=== PATIENT | male | born 1995 | race Caucasian/White ===

== ENCOUNTER 2023-01-26 11:23 | Emergency (ER) | payer OTHER ==
[2023-01-26 12:12] LABS: BILIRUBIN,URINE NEGATIVE (NEGATIVE); CLARITY,URINE CLEAR (CLEAR); GLUCOSE, URINE (UA) NEGATIVE (NEGATIVE); KETONES,URINE (UA) NEGATIVE (NEGATIVE); LEUKOCYTE ESTERASE, URINE NEGATIVE (NEGATIVE); NITRITE,URINE NEGATIVE (NEGATIVE); OCCULT BLOOD,URINE NEGATIVE (NEGATIVE); PROTEIN,URINE NEGATIVE (NEGATIVE); UROBILINOGEN,URINE 0.2 (NORMAL) E.U./dL (NORMAL)
[2023-01-26 12:15] LABS: BASOPHILS % (AUTO) 0.6 %; EOSINOPHILS # (AUTO) 0.2 10^3/uL (0.0-0.7); HCT - HEMATOCRIT 47.2 % (42.0-52.0); HGB - HEMOGLOBIN 16.3 g/dL (14.0-18.0); LYMPHOCYTES % (AUTO) 27.9 %; MEAN CORPUSCULAR HGB CONC 34.5 g/dL (32.0-36.0); MEAN CORPUSCULAR VOLUME 86.9 fL (80.0-94.0); MEAN PLATELET VOLUME 10.3 fL (7.4-11.4); MONOCYTES # (AUTO) 0.4 10^3/uL (0.0-1.0); MONOCYTES % (AUTO) 5.7 %; NEUTROPHILS # (AUTO) 4.4 10^3/uL (1.5-6.6); NEUTROPHILS % (AUTO) 62.2 %; PLT - PLATELET COUNT 271 10^3/uL (130-450); RED BLOOD COUNT 5.43 10^6/uL (4.70-6.10); RED CELL DISTRIBUTION WIDTH 12.5 % (12.0-15.0)
[2023-01-26 12:29] LABS: ALBUMIN 5.2 g/dL (3.2-5.5); ALBUMIN/GLOBULIN RATIO 2.1 (1.0-2.2); BILIRUBIN,TOTAL 0.6 mg/dL (0.2-1.0); CALCIUM 10.2 mg/dL (8.5-10.3); CREATININE 0.8 mg/dL (0.6-1.3); POTASSIUM 3.9 mmol/L (3.5-4.5); TOTAL PROTEIN 7.7 g/dL (6.4-8.9)
--- NOTE | 2023-01-26 13:50 | ED Physician Documentation ---
History of Present Illness - Stated complaint Stated Complaint: LOWER ABD PX - Chief complaint Chief Complaint: Abd Pain - Additonal information Additional information: 20-year-old male presents emergency department for evaluation of acute right lower pelvic pain that he first noticed yesterday when he was at work. He was lifting some boxes. He did not think much of it initially but his course the day went on the pain got worse and radiated to the left side of his abdomen. No fevers, nausea or vomiting. No melena. No dysuria or hematuria. No history of similar. Review of Systems Constitutional: denies: Fever Cardiac: reports: Reviewed and negative Respiratory: reports: Reviewed and negative GI: reports: Abdominal Pain : reports: Reviewed and negative PD PAST MEDICAL HISTORY - Past Medical History Past Medical History: No Cardiovascular: None Respiratory: None Neuro: None Endocrine/Autoimmune: None GI: None : None HEENT: None Psych: None Musculoskeletal: None Derm: None - Present Medications Home Medications: Ambulatory Orders Medication Instructions Recorded Confirmed No Known Home Medications 01/26/23 01/26/23 - Allergies Allergies/Adverse Reactions: Allergies Allergy/AdvReac Type Severity Reaction Status Date / Time No Known Drug Allergies Allergy Verified 01/26/23 11:47 - Social History Does the pt smoke?: No Smoking Status: Never smoker Does the pt drink ETOH?: Yes Does the pt have substance abuse?: No - Immunizations Immunizations are current?: Yes PD ED PE NORMAL - General General: Alert and oriented X 3, No acute distress, Well developed/nourished - HEENT HEENT: Atraumatic - Neck Neck: Supple, no meningeal sign, No JVD - Cardiac Cardiac: RRR, No murmur - Respiratory Respiratory: No respiratory distress, Clear bilaterally - Abdomen Abdomen: Normal bowel sounds, Soft. No: Non tender (Very mild right lower quadrant abdominal tenderness without guarding or rebound. The pain is very low in the pelvic region just above the inguinal fold. However I was unable to appreciate a hernia when he was either laying flat or upright.) Results - Vitals Vitals: Vital Signs - 24 hr 01/26/23 01/26/23 11:48 13:34 Temperature 36.8 C Heart Rate 115 H 77 Respiratory 18 16 Rate Blood Pressure 167/82 H 131/91 H O2 Saturation 100 100 Oxygen O2 Source Room air - Labs Labs: Laboratory Tests 01/26/23 01/26/23 01/26/23 12:06 12:11 12:11 WBC 7.0 RBC 5.43 Hgb 16.3 Hct 47.2 MCV 86.9 MCH 30.0 MCHC 34.5 RDW 12.5 Plt Count 271 MPV 10.3 Neut # (Auto) 4.4 Lymph # (Auto) 2.0 [place] # (Auto) 0.4 Eos # (Auto) 0.2 Baso # (Auto) 0.0 Absolute Nucleated RBC 0.00 Nucleated RBC % 0.0 Sodium 137 Potassium 3.9 Chloride 101 Carbon Dioxide 30 Anion Gap 6.0 BUN 11 Creatinine 0.8 Estimated GFR (MDRD) 115 Glucose 102 Calcium 10.2 Total Bilirubin 0.6 AST 16 ALT 27 Alkaline Phosphatase 52 Total Protein 7.7 Albumin 5.2 Globulin 2.5 Albumin/Globulin Ratio 2.1 Lipase 20 Urine Color YELLOW Urine Clarity CLEAR Urine pH 7.0 Ur Specific [place] <=1.005 Urine Protein NEGATIVE Urine Glucose (UA) NEGATIVE Urine Ketones NEGATIVE Urine Occult Blood NEGATIVE Urine Nitrite NEGATIVE Urine Bilirubin NEGATIVE Urine Urobilinogen 0.2 (NORMAL) Ur Leukocyte Esterase NEGATIVE Ur Microscopic Review NOT INDICATED Urine Culture Comments NOT INDICATED - Rads (name of study) CT abd w Relevant Findings:: Final report received (The colon is redundant with moderately large fecal load. Normal appendix. No acute abdominal process noted. Mild diffuse hepatic steatosis.) PD Medical Decision Making - ED course Complexity details: reviewed results, d/w patient ED course: 2 days of right lower quadrant abdominal pain without fevers nausea vomiting diarrhea melena or hematochezia. On exam he had some mild right lower quadrant pelvic pain though no guarding rebound or symptomatology suggestive of acute appendicitis. CBC electrolytes were obtained which showed no acute abnormalities. No infection in the urine or hematuria. Subsequently CT of the abdomen was completed that showed a normal appendix. The CT was also done to evaluate for the possibility of an occult inguinal hernia which was also not visualized. We do note moderate fecal loading within the colon. This finding was discussed with the patient. Advised MiraLAX. If symptoms not improved with constipation unloading then consider regional ultrasound to evaluate for an inguinal hernia Departure - Departure Disposition: 01 Home, Self Care Clinical Impression: Right lower quadrant abdominal pain Constipation Qualifiers: Constipation type: other constipation type Qualified Code(s): K59.09 - Other constipation Condition: Stable Comments: The labs you had obtained today were essentially normal. The CT of your abdomen did not show an inguinal hernia or acute appendicitis. It does show a large amount of stool within the colon which can cause some similar vague pains. Recommend that you buy MiraLAX [id number] and take it twice daily until you have 3 or 4 large watery bowel movements. If you find the pain in your lower abdomen and pelvic region is not better after making sure constipation is not an issue follow-up with [facility]. You may then benefit from a ultrasound to make sure there is no inguinal hernia that was missed on CT imaging. Return to the ER for any new or worsening symptoms. Forms: PCP List
--- NOTE | 2023-01-26 15:23 | CT Report ---
PROCEDURE: ABDOMEN/PELVIS W INDICATIONS: RLQ pain; r/o appy CONTRAST: 100ml omni 30 TECHNIQUE: After the administration of intravenous contrast, 5 mm thick sections acquired from the diaphragms to the symphysis. 5 mm thick coronal and sagittal reformats were acquired. For radiation dose reducti on, the following was used: automated exposure control, adjustment of mA and/or kV according to pato ent size. COMPARISON: None FINDINGS: Image quality: Excellent. Lung bases and heart: Unremarkable. Liver: Mild diffuse hepatic steatosis. Gallbladder and biliary tree: No radiopaque stones or wall thickening. No biliary dilation. Spleen: No splenomegaly. Pancreas: No pancreatic ductal dilation. Adrenals: No adrenal nodule. Kidneys and ureters: No hydronephrosis. No renal cystic lesion which requires follow up. No solid mas s. Bowel and peritoneum: No bowel distension. No pathologic free fluid. There is a normal gas containing appendix. Redundant colon with moderately large fecal load. Lymph nodes: No central or retroperitoneal adenopathy. Vessels: No infrarenal aortic aneurysm. PELVIS Reproductive organs: Unremarkable. Bladder: No abnormal wall thickening, accounting for underdistension. Pelvic lymph nodes: No pelvic adenopathy by size criteria. Bones: No aggressive osseous abnormality. Other: No significant ventral or inguinal hernia. IMPRESSION: 1. The colon is redundant with a moderately large fecal load. 2. Normal appendix. 3. No acute abdominal process noted. 4. Mild diffuse hepatic steatosis. Reviewed by: Kd Carr MD on 01/26/2023 3:22 PM PDT Approved by: Kd Carr MD on 01/26/2023 3:22 PM PDT Station ID: [id number]
[2023-01-26 15:44] VITALS: BP 133/67; O2SAT 100
[2023-01-26] MEDS ORDERED: iohexoL-300 100 ML VIAL IVP ONE (16:50)
== END 2023-01-26 15:35 | disposition home or self-care (01) ==
LOC: ED 11:23
DX: K59.00 Constipation, unspecified (principal); R10.31 Right lower quadrant pain
CPT/HCPCS: 36415; 74177; 80053; 81003; 83690; 85025; 99283; 99284; Q9967; 81001; 87086